=== PATIENT | female | born 2005 | race Caucasian/White ===

== ENCOUNTER 2025-05-29 17:02 | Emergency (ER) | payer OTHER ==
[~2025-05-29] VITALS: Ht 162.6 cm; Wt 49.8 kg
[2025-05-29] MEDS: LIDOCAINE 5% PATCH TD ONE (18:19)
[2025-05-29] MEDS: KETOROLAC 30 MG/ML 1 ML VIAL IM ONE (18:23)
[2025-05-29 19:38] VITALS: BP 103/62; TEMP 98.3; O2SAT 100
== END 2025-05-29 19:41 | disposition home or self-care (01) ==
LOC: M ED 17:02
DX: S46.011A Strain of muscle(s) and tendon(s) of the rotator cuff of right shoulder, initial encounter (principal); Y92.9 Unspecified place or not applicable; Y93.F2 Activity, caregiving, lifting; Y99.0 Civilian activity done for income or pay
CPT/HCPCS: 73030; 96372; 99283; J1885

== ENCOUNTER → 2025-08-27 | Outpatient (REF) | LOC: M EMP 13:35 | PROVIDERS: ATTEND Family Medicine | DX: Z01.89 Encounter for other specified special examinations (principal) ==